=== PATIENT | male | born 1975 | race Caucasian/White ===

== ENCOUNTER → 2019-09-14 07:36 | Outpatient (BNVA) | payer MEDICARE, MEDICAID, SELFPAY | PROVIDERS: Family Provider Family Medicine; PCP Family Medicine; Visit Provider Nurse Practitioner | DX: F43.12 Post-traumatic stress disorder, chronic (principal); F41.9 Anxiety disorder, unspecified | CPT/HCPCS: 99214 ==

== ENCOUNTER → 2019-12-17 07:47 | Outpatient (BNVA) | payer MEDICARE, MEDICAID, SELFPAY | PROVIDERS: Family Provider Family Medicine; PCP Family Medicine; Visit Provider Nurse Practitioner | DX: F41.9 Anxiety disorder, unspecified (principal); F43.12 Post-traumatic stress disorder, chronic | CPT/HCPCS: 99214 ==

== ENCOUNTER → 2020-01-11 08:02 | Outpatient (BNVA) | payer MEDICARE, MEDICAID, SELFPAY | PROVIDERS: Family Provider Family Medicine; PCP Family Medicine; Visit Provider Nurse Practitioner | DX: F41.9 Anxiety disorder, unspecified (principal); F43.12 Post-traumatic stress disorder, chronic | CPT/HCPCS: 99213 ==

== ENCOUNTER → 2020-04-22 07:53 | Outpatient (BNVA) | payer MEDICARE, MEDICAID, SELFPAY | PROVIDERS: Family Provider Family Medicine; PCP Family Medicine; Visit Provider Nurse Practitioner | DX: F41.9 Anxiety disorder, unspecified (principal); F43.12 Post-traumatic stress disorder, chronic | CPT/HCPCS: 99214 ==

== ENCOUNTER → 2020-06-19 10:17 | Outpatient (BNVA) | payer MEDICARE, MEDICAID, SELFPAY | PROVIDERS: Family Provider Family Medicine; PCP Family Medicine; Visit Provider Nurse Practitioner | DX: F43.12 Post-traumatic stress disorder, chronic (principal); F41.9 Anxiety disorder, unspecified | CPT/HCPCS: 99213 ==

== ENCOUNTER 2020-08-05 07:47 | Outpatient (CLI) | payer MEDICARE, MEDICAID, SELFPAY ==
--- NOTE | 2020-08-05 08:04 | NMCV_ITS ---
NM viridiana perf SPECT r/s* [id number] Rodney Torres Age: 44 Gender: M : 1975 Exam Date: 08/05/2020 09:23 Ordering Phys: Corey Maher Technologist: CHAPITO Walsh Exam Location: [facility] Indications: Chest pain STRESS TEST Please see separate stress test report [facility] for full findings IMAGE PROTOCOL Rest/Stress 1 Lexiscan Day Radiopharmaceutical Dose (mCi) Administration Site Administered by Rest: Tc-99m 10.8 IV CHAPITO Walsh Sestamibi Stress:Tc-99m 33.0 IV CHAPITO Alba Sestamibi Rest: 05-Aug-2020 60 Discovery 630 Stress: 05-Aug-2020 45 Discovery 630 0.4mg Lexiscan. Images obtained in supine and prone position. SPECT RESULTS Technical Quality: Good Raw Data Analysis: Normal Image Corrections: Patient motion artifact - partial motion correction applied stress supine images Summed Stress Score: 0 Summed Rest Score: 7 Summed Difference Score: 0 PERFUSION FINDINGS Moderate sized prefusion defects are noted in the inferior and apical winslow at rest that resolve on stress images. Likely secondary to attenuation artifact FUNCTIONAL RESULTS (calculated via Gated SPECT) Stress Image LV EF (%): 50 Stress EDV (mL):131 TID: 1.03 Stress ESV (mL):66 FUNCTIONAL FINDINGS: There is normal left ventricular systolic function. IMPRESSIONS 1. Normal myocardial perfusion imaging. No evidence of ischemia 2. Attenuation artifacts seen in inferior and apical winslow 3. LV systolic function is normal Ariel Coreas MD (Electronically Signed) Final Date: 06 August 2020 19:28 S
--- NOTE | 2020-08-05 08:04 | ECG_ITS ---
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 Interpretive Statements NAME OF STUDY: LEXISCAN SESTAMIBI STRESS TEST INDICATION: [Chest Pain, ] Procedure: At the baseline, the blood pressure was 151/109mmHg, with a heart rate of 73 bpm. The electrocardiogram showed normal sinus rhythm, normal with normal ST and T waves. The Lexiscan was infused over a duration of 20 seconds. A total of 0.4 mg of Lexiscan was infused. The stress phase was continued for a total of 5 minutes. Heart rate at the end of stress phase was 79 bpm with a blood pressure 140/101 mmHg. The EKG at the peak infusion revealed sinus rhythm with no significant ST-T wave changes. Sestamibi was injected 20 seconds after Lexiscan infusion. Blood pressure at the end of the recovery phase was 145/102 mmHg with a heart rate of 84 bpm. Conclusion: 1. Normal EKG response to Lexiscan infusion. 2. No Lexiscan induced chest pain or cardiac arrhythmia. 3. Normal blood pressure and heart rate response. 4. Sestamibi/sestamibi perfusion scan pending; see separate report. Electronically Signed On 08-17-2020 17:50:28 CDT by Ariel Coreas M.D. [email or web address]
[2020-08-05 08:43] VITALS: BMI 43.2
[2020-08-05] MEDS: regadenoson 0.4 Mg/5 ml Syringe IVP (09:51)
[2020-08-05 09:59] VITALS: BP 145/102; PULSE 79
== END 2020-08-05 07:48 | disposition home or self-care (01) ==
PROVIDERS: PCP Family Medicine; Visit Provider Family Medicine
DX: R07.9 Chest pain, unspecified (principal)
CPT/HCPCS: 78452; 93017; A9500; J2785

== ENCOUNTER → 2020-10-01 07:52 | Outpatient (BNVA) | payer MEDICARE, MEDICAID, SELFPAY | PROVIDERS: PCP Family Medicine; Visit Provider Nurse Practitioner | DX: F41.9 Anxiety disorder, unspecified (principal); F43.12 Post-traumatic stress disorder, chronic | CPT/HCPCS: 99214 ==

== ENCOUNTER → 2020-12-24 07:19 | Outpatient (BNVA) | payer MEDICARE, MEDICAID, SELFPAY | PROVIDERS: PCP Family Medicine; Visit Provider Nurse Practitioner | DX: F41.9 Anxiety disorder, unspecified (principal); F43.12 Post-traumatic stress disorder, chronic | CPT/HCPCS: 99214 ==

== ENCOUNTER → 2021-02-24 07:29 | Outpatient (BNVA) | payer MEDICARE, MEDICAID, SELFPAY | PROVIDERS: PCP Family Medicine; Visit Provider Nurse Practitioner | DX: F41.9 Anxiety disorder, unspecified (principal); F43.12 Post-traumatic stress disorder, chronic | CPT/HCPCS: 99214 ==

== ENCOUNTER → 2021-07-03 07:46 | Outpatient (BNVA) | payer MEDICARE, MEDICAID, SELFPAY | PROVIDERS: PCP Family Medicine; Visit Provider Nurse Practitioner | DX: F43.12 Post-traumatic stress disorder, chronic (principal); F41.9 Anxiety disorder, unspecified | CPT/HCPCS: 99214 ==

== ENCOUNTER → 2021-08-07 07:27 | Outpatient (BNVA) | payer MEDICARE, MEDICAID, SELFPAY | PROVIDERS: PCP Family Medicine; Visit Provider Nurse Practitioner | DX: F43.12 Post-traumatic stress disorder, chronic (principal); F41.9 Anxiety disorder, unspecified | CPT/HCPCS: 99214 ==

== ENCOUNTER 2021-10-25 00:58 | Observation (INO) | payer MEDICARE, MEDICAID, SELFPAY ==
[2021-10-25 00:45] VITALS: BMI 40.7
[2021-10-25 00:58] VITALS: BP 130/89; PULSE 65; RESP 16; TEMP 36.3; O2SAT 96
--- NOTE | 2021-10-25 00:59 | USR_ITS ---
PROCEDURE INFORMATION: Exam: US Abdomen Complete Exam date and time: 10/25/2021 7:03 AM Age: 46 years old Clinical indication: Acute abdominal pain. Cholelithiasis. TECHNIQUE: Imaging protocol: Real-time ultrasound of the abdomen with image documentation. COMPARISON: CR Abdomen Series Acute [id number] 10/11/2016 7:56 AM FINDINGS: The hepatic parenchyma is echogenic. No biliary ductal dilatation. The common bile duct measures 0.4 cm. Cholelithiasis with apparent stone lodged in the gallbladder neck. There is mild prominence of the gallbladder wall. The visualized aorta is grossly normal in caliber. The right kidney measures 11.5 cm. No suspicious mass or hydronephrosis. A simple right renal cyst measures 2.8 x 2.8 x 2.9 cm. The left kidney measures 12.2 cm. No suspicious mass or hydronephrosis. The pancreas and IVC are obscured by overlying bowel gas. The spleen is mildly enlarged measuring 13.1 cm. US/US abdomen complete* [id number] IMPRESSION: 1. Cholelithiasis with apparent stone lodged in the gallbladder neck. There is mild prominence of the gallbladder wall. The sonographic Guerra sign is positive. These findings are concerning for acute cholecystitis. Consider HIDA scan if clinically equivocal. 2. Hepatic steatosis. 3. Mild splenomegaly.
--- NOTE | 2021-10-25 01:02 | P.HP_ITS ---
Providers/Chief Complaint Admitting Physician: Carmel Jones DO Primary Care Provider: Corey Maher Chief Complaint: GI Bleed History of Present Illness The patient is a 46-year-old male who was transferred from [facility] due to abdominal pain. He indicates that the abdominal pain started partially 7 days prior to hospitalization. He states that it is in a bandlike distribution in his upper abdomen. He denies radiation of the pain. He describes it as sharp, dull, and stabbing. As worst rated 9 out of 10 and currently he claims he rates 9 out of 10 although his outward appearance does not come close to be matching the subjective rating of pain. He states since the time of onset and the pain has been constant. He did not take any medication for the pain at home. He states that his last bowel movement was on October 24 to the . He admits to hematochezia. He denies melena, diarrhea, stat area. He states that he has been taking ibuprofen daily for many years. He admits to onset of rigors, nausea, vomiting. He denies fever. He presents for further evaluation Review of Systems General: Reports: 10 or more systems reviewed and unremarkable except in HPI and below Medications/Allergies Home Medications Medication Instructions Recorded Confirmed Last Taken Type ibuprofen 800 mg tablet 800 mg PO BID PRN tab 07/06/19 12/23/20 Unknown History valsartan 320 mg tablet (Diovan) 320 mg PO DAILY tab 07/06/19 12/23/20 Unknown History citalopram 40 mg tablet (Celexa) 40 mg PO DAILY #30 tab 10/22/21 Unknown Rx quetiapine 300 mg tablet (Seroquel) 300 mg PO .HS #30 tab 10/22/21 Unknown Rx quetiapine 50 mg tablet (Seroquel) 50 mg PO BID PRN #60 tab 10/22/21 Unknown Rx trazodone 50 mg tablet 50 mg PO .QHS PRN #30 tab 10/22/21 Unknown Rx Allergies Allergy/AdvReac Type Severity Reaction Status Date / Time No Known Allergies Allergy Verified 09/13/19 15:08 PFSH Acute PFSH: Medical History Anxiety disorder, unspecified Post-traumatic stress disorder, chronic Psychiatric care Vitals/I&O/Wt Weight last 48 hrs Weight 147.871 kg Physical Exam Narrative: General: -Alert -No acute distress -No dyspnea -No tachypnea Head: -Atraumatic -Normocephalic Eyes: -Pupils equally round and reactive to light and accommodation -Extraocular muscles intact Neurological: -Cranial nerves II-XII intact Neck: -No jugular venous distention -No thyromegaly -No cervical lymphadenopathy Heart: -Regular rate -Regular rhythm -No murmurs -No gallops -No rubs Lungs: -No wheeze -No rhonchi -No rales ? Abdomen: -Normal bowel sounds in all four quadrants -No rebound -No guarding -No tenderness Extremities: -2/4 pulse in all four extremities -No clubbing -No cyanosis -No edema -No calf tenderness present bilaterally -Negative Ángel?s sign bilaterally Musculoskeletal: -5/5 bilateral upper extremity strength -5/5 bilateral lower extremity strength -Sensorium of bilateral upper extremities are equal and intact -Sensorium of bilateral lower extremities are equal and intact ? Additional Details / Additional Findings / Exceptions / Miscellaneous: A&P Assessment and plan (1) Anxiety disorder, unspecified: Status: Acute Plan acute pancreatitis. CT at outside hospital demonstrated cholelithiasis but it did not of straight cholecystitis or choledocholithiasis. Nothing by mouth. Will monitor lipase level intermittently along with CMP. Right upper quadrant ultrasound pending. Fasting lipid panel pending. IV normal saline 100 ML's per hour PTSD Anxiety Depression Muscle spasm Macrocytic anemia. We will monitor hemoglobin level intermittent late. Check serum ferritin, iron panel, fecal occult blood, TSH, free T4, B12, folate level Diabetes. Will check fasting glucose every before meals and at bedtime and provide insulin sliding scale Hypertension Obesity. The patient will need to becomes regarding lifestyle modification Smoker. The patient will be need to be counseled regarding smoking cessation Hematochezia. Will monitor hemoglobin level intermittently. gastroenterology will need to consult on the morning of October 25, 2021.PT/INR pending. PTT pending. Nothing by mouth. Protonix 40 Mill grams IV twice a day +681 g by mouth every before meals and at bedtime. history of suicidal ideation Seasonal allergies Diverticulosis DVT Proflex is. 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
--- NOTE | 2021-10-25 01:36 | PC.NURSE ---
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 This RN walked into patient room to explain to him that i was waiting for pharmacy to verify his medication and that i couldnt give him anything yet until it was verified. Patient refusing IV fluids and IV protonix stating he isnt taking anything until he gets his fucking pain medications through his iv. I explained to patient that he was getting PO tramadol and patient stated that he wanted the iv shit because at the other hospital he was at they were giving him the IV stuff. I explained to patient that Dr Jones only ordered PO pain medication. Patient proceeded to get angry with this RN saying he should have stayed home and dealt with this since we are not doing anything for him. Patient also stated that he was going to get an attitude with every person that enters his room until he gets the fucking pain medications.
[2021-10-25] MEDS: pantoprazole 40 mg SDV IVP ×2 (01:49→14:07)
--- NOTE | 2021-10-25 01:54 | PC.NURSE ---
This RN went into patients room at this time once his pain medication was verified. A MUSA Shea in room at this time with this RN. Patient stated that He isnt taking tramadol that is fucking stupid. This RN asked what patient takes at home when he is having pain. Patient stated takes iburprofen and tramadol at home thats why he isnt taking the tramadol now. Dr. Jones notified and asked to come speck with patient.
[2021-10-25 03:17] VITALS: RESP 18
[2021-10-25] MEDS: morphine 4 mg/mL SDV 1 mL 2 MG IVP (03:17)
[2021-10-25] MEDS: sodium chloride 0.9% 1,000 ML 100 ML IV ×2 (03:19→14:05)
[2021-10-25 03:32] LABS: Basophils # 0.1 10^3/uL (0.0-0.1); Basophils % 0.7 %; Eosinophils # 0.2 10^3/uL (0.0-0.8); Eosinophils % 2.1 %; Hematocrit 41.3 % (42.0-52.0); Hemoglobin 13.4 g/dL (11.7-16.6); Lymphocytes # 2.8 10^3/uL (0.8-4.8); Lymphocytes % 36.5 %; Mean Corpuscular HGB Conc 32.4 g/dL (30.0-36.0); Mean Corpuscular Hemoglobin 33.2 pg (28.0-34.0); Mean Corpuscular Volume 102.2 fl (80-94); Mean Platelet Volume 11.9 fL (7.4-10.4); Monocytes # 0.6 10^3/uL (0.2-0.9); Neutrophils # 3.95 10^3/uL (1.8-7.7); Neutrophils % 51.5 %; Nucleated Red Blood Cells % 0 %; Platelet Count 240 10^3/cmm (130-400); Red Blood Count 4.04 10^6/uL (4.1-5.3); Red Cell Distribution Width 13.6 % (12.1-15.1); White Blood Count 7.7 10^3/uL (4.0-10.0)
[2021-10-25 03:47] LABS: INR 1.02 (0.8-1.2); Partial Thromboplastin Time 27.9 SECONDS (23.9-36.7)
[2021-10-25 03:54] LABS: Alanine Aminotransferase 399 U/L (0-41); Albumin Level 3.3 g/dL (3.5-5.2); Alkaline Phosphatase 346 IU/L (40-130); Anion Gap 14.6 (5-19); Aspartate Amino Transferase 212 U/L (0-40); Blood Urea Nitrogen 6 mg/dL (6-20); Calcium 8.1 mg/dL (8.5-10.5); Carbon Dioxide 23 mmol/L (22-29); Chloride 104 mmol/L (98-107); Cholesterol 214 mg/dL (0-200); Globulin 3.1 g/dL (1.3-4.6); Glomerular Filtration Rate 146.4 mL/min (90-130); Glucose 88 mg/dL (65-115); HDL Cholesterol 42 mg/dL (60-100); LDL Cholesterol Calculated 153 mg/dL (50-129); LDL HDL Ratio 3.64 RATIO (0.00-3.22); Osmolality Calculated 283 mOsm/kg (285-295); Potassium 3.6 mmol/L (3.5-5.1); Sodium 138 mmol/L (136-145); Total Bilirubin 2.9 mg/dL (0.15-1.2); Total Protein 6.4 g/dL (6.6-8.7); Triglycerides 94 mg/dL (0-150)
[2021-10-25 04:00] VITALS: BP 130/80; PULSE 78; RESP 18; TEMP 36.8; O2SAT 99
[2021-10-25 04:02] LABS: Thyroid Stimulating Hormone 2.12 uIU/mL (0.27-4.20)
[2021-10-25 04:03] LABS: Free T4 Free Thyroxine 1.25 ng/dL (0.82-1.77)
[2021-10-25 04:17] LABS: Ferritin 636 ng/mL (30-400); Iron 69 ug/dL (59-158); Percent Saturation 32.3 % (20-50); Total Iron Binding Capacity 213 mcg/dl; Unsaturated Iron Binding 144 ug/dL (112-347)
[2021-10-25 04:19] LABS: Folate Level 5.8 ng/mL (4.5-32.2)
[2021-10-25 05:31] LABS: Vitamin B12 > 2000 pg/mL (232-1245)
[2021-10-25 06:39] LABS: Lipase 755 U/L (13-60)
[2021-10-25] MEDS: ondansetron 2 mg/ML SDV 2 mL 4 MG IVP ×2 (08:25→17:13)
[2021-10-25 09:02] VITALS: BP 113/69; PULSE 52; RESP 18; TEMP 36.7; O2SAT 94
[2021-10-25] MEDS: HYDROmorphone 1 mg/mL INJ 1 mL 0.5 MG IVP ×2 (09:18→15:25)
--- NOTE | 2021-10-25 10:10 | P.PN_ITS ---
Subjective Subjective: Transferred yesterday from [facility] for abdominal pain with concern for biliary colic. Gallbladder ultrasound concerning for gallbladder outlet obstruction. Currently patient denies any nausea vomiting, headache. Complaining of abdominal pain. Asking for pain medications. Hemodyn amically stable. Afebrile. Vitals/I&O/Wt Last Vital Signs Temp 98.0 F 10/25/21 09:02 Pulse 52 L 10/25/21 09:02 Resp 18 10/25/21 09:02 BP 113/69 10/25/21 09:02 Pulse Ox 94 10/25/21 09:02 10/24/21 10/25/21 10/25/21 22:59 06:59 14:59 Intake Total 0 / 0 Output Total 0 / 0 Balance 0 / 0 Weight last 48 hrs Weight 147.871 kg Physical Exam Narrative: General: Acute distress because of abdominal pain, morbidly obese, AOx3 HEENT: PERRLA, pupils bilaterally equal and reactive Chest: Normal vesicular breath sounds, no added sounds, equal good air entry bilaterally CVS: S1-S2 regular, no murmurs, no tachycardia, no gallops, no rubs Abdomen: Soft, tenderness present in the right upper quadrant and epigastric region, no rebound or guarding, no organomegaly, bowel sounds present Neuro: No focal deficits, no facial deformity, AO x3, power 5/5 in all limbs Data : 10/25/21 02:55 10/25/21 02:55 A&P Assessment and plan (1) Pancreatitis: Status: Acute (2) Cholelithiasis and cholecystitis with obstruction: Status: Acute (3) Transaminitis: Status: Acute (4) Bilirubinemia: Status: Acute (5) Anxiety disorder, unspecified: Status: Acute Plan Abdominal pain: Secondary to cholelithiasis with cholecystitis stone dislodged gall bladder neck, pancreatitis: NPO. Gallbladder studies consistent with cholelithiasis with gallstone at bladder neck. Biliary duct nondilated. Patient has transaminitis with bilirubinemia. Lipase elevated. CT abdomen pelvis with contrast difficult etiology for transaminitis. MRCP stat It is likely patient will need an ERCP for which he will need to be transferred to a higher center. We will plan as per the results of MRCP. Protonix IV daily. Zofran as needed. Hydromorphone 0.5 IV every 6 hours as needed. Check hepatitis panel, HIV. Urine drug screen. Alcohol level. History of PTSD/anxiety/depression. History of suicidal ideation: Denies any active complaints. Possible history of hematochezia: Hemoglobin stable. Will continue to monitor hemoglobin daily. Look for melena. Continue with Protonix as above. Full code. SCDs for DVT prophylaxis. NPO. 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
--- NOTE | 2021-10-25 10:16 | CTR_ITS ---
PROCEDURE INFORMATION: Exam: CT Abdomen And Pelvis With Contrast Exam date and time: 10/25/2021 2:29 PM Age: 46 years old Clinical indication: Abdominal pain; Epigastric; Additional info: Cholecystitis TECHNIQUE: Imaging protocol: Computed tomography of the abdomen and pelvis with contrast. Radiation optimization: All CT scans at this facility use at least one of these dose optimization techniques: automated exposure control; mA and/or kV adjustment per patient size (includes targeted exams where dose is matched to clinical indication); or iterative reconstruction. Contrast material: VISI 320; Contrast volume: 50 ml; Contrast route: INTRAVENOUS (IV); COMPARISON: MR MRCP [id number] 10/25/2021 12:15 PM RADIATION DOSE METRICS: Total DLP (mGy-cm): 1963.69 FINDINGS: Liver: Hepatic steatosis. No mass. Gallbladder and bile ducts: 3 cm stone at the gallbladder body/neck without gallbladder distention or wall thickening. Small grouped calcifications at the distal common bile duct suggestive of stones/choledocholithiasis series 2 image 41. Common bile duct dilated up to 1.4 cm. Pancreas: Normal. No ductal dilation. Spleen: Normal. No splenomegaly. Adrenal glands: Normal. No mass. Kidneys and ureters: Scattered simple cysts measuring up to 3 cm in size. No hydronephrosis. Stomach and bowel: Unremarkable. No obstruction. No mucosal thickening. Appendix: No evidence of appendicitis. Intraperitoneal space: Unremarkable. No free air. No significant fluid collection. Vasculature: Unremarkable. No abdominal aortic aneurysm. Lymph nodes: Unremarkable. No enlarged lymph nodes. Urinary bladder: Unremarkable as visualized. Reproductive: Unremarkable as visualized. Bones/joints: No acute fracture. Soft tissues: Unremarkable. CT/CT abdomen pelvis w con* [id number] IMPRESSION: Cholelithiasis and choledocholithiasis with dilation of the common bile duct up to 1.4 cm.
--- NOTE | 2021-10-25 10:17 | MRR_ITS ---
PROCEDURE INFORMATION: Exam: MR Abdomen Without Contrast Exam date and time: 10/25/2021 12:15 PM Age: 46 years old Clinical indication: Condition or disease; Other: PT states pancreatitis and liver problems; Abdominal tenderness; Additional info: Cholelithiasis with cholecystitis, gall bladder obs TECHNIQUE: Imaging protocol: MR of the abdomen without contrast. COMPARISON: CT abdomen pelvis wo con [id number] 10/24/2021 8:16 PM FINDINGS: Liver: Diffuse hepatic steatosis. No mass. Gallbladder and bile ducts: 3 cm stone noted at the gallbladder body/neck. No gallbladder distention or wall thickening. The common bile duct is distended to 1 cm and there is susceptibility artifact at the distal common bile duct/ampullary region with similar signal characteristics to the stone in the gallbladder. This is suggestive of choledocholithiasis and is best seen on series 401, image 13 measuring 1.2 cm in length. Pancreas: Unremarkable. No ductal dilation. Spleen: Unremarkable. No splenomegaly. Adrenal glands: Unremarkable. No mass. Kidneys and ureters: Scattered simple cysts in both kidneys measuring up to 3 cm in size. No solid mass. No hydronephrosis. Stomach and bowel: Visualized stomach and intestines are unremarkable. Intraperitoneal space: No free fluid. Vasculature: No abdominal aortic aneurysm. Bones/joints: Unremarkable. Soft tissues: Unremarkable. MR/MR MRCP [id number] IMPRESSION: 1. Mild distention of the common bile duct up to 1 cm with suspected choledocholithiasis. There is also a 3 cm stone situated in the gallbladder body/neck as noted on prior imaging. 2. Diffuse hepatic steatosis. COMMENTS: Consistent with the [employer]'s Incidental Findings Committee white paper (J Am Cesar Radiol 2018): Any incidental renal lesion less than 1 cm or classified as too small to characterize, or any incidental cystic renal lesion characterized as simple-appearing, is likely benign. No follow-up imaging is recommended for these lesions per consensus recommendations based on imaging criteria.
[2021-10-25] MEDS: piperacillin-tazobactam 3.375 GM in sodium chloride 0.9% (plus) 50 ML IV ×2 (10:28→17:13)
[2021-10-25 11:18] LABS: Amphetamines Screen Urine Negative (Negative); Barbiturates Screen Urine Negative (Negative); Benzodiazepines Screen Urine Negative (Negative); Cocaine Screen Urine Negative (Negative); Opiate Screen Urine Positive (Negative); PCP Screen Urine Negative (Negative); THC Screen Urine Positive (Negative)
[2021-10-25 11:50] VITALS: BP 122/82; PULSE 51; RESP 18; TEMP 36.6; O2SAT 97
[2021-10-25] MEDS: haloperidol inj 5 mg/mL INJ 1 mL 2 MG IM (11:57)
[2021-10-25 12:05] LABS: Glucose Point of Care 81 mg/dL (70-110)
[2021-10-25] MEDS: iodixanol 320 mg/mL 100mL Btl IV (14:32)
--- NOTE | 2021-10-25 15:12 | P.TS_ITS ---
Transfer Summary Providers Date of Admission: 10/25/21 00:58 Date of Discharge/Transfer: 10/25/21 Attending Provider at Admission: Carmel Jones DO Attending Provider at Transfer: Jonathan Schwab MD Primary Care Provider: Corey Maher Transfer Plans: Anticipated date of transfer: 10/25/21 . Receiving Facility: [facility] . Receiving Provider: Dr. Vela . Diagnoses at Discharge Discharge Diagnosis (1) Pancreatitis: Status: Acute (2) Cholelithiasis and cholecystitis with obstruction: Status: Acute (3) Transaminitis: Status: Acute (4) Bilirubinemia: Status: Acute (5) Anxiety disorder, unspecified: Status: Acute Reason for Visit Reason for Visit GI Bleed Hospital Course Hospital Course Rodney Torres, 46-year-old male who was transferred from [facility] due to abdominal pain.? He indicates that the abdominal pain started partially 7 days prior to hospitalization.? He states that it is in a bandlike distribution in his upper abdomen.? He denies radiation of the pain.? He describes it as sharp, dull, and stabbing.? As worst rated 9 out of 10 and currently he claims he rates 9 out of 10 although his outward appearance does not come close to be matching the subjective rating of pain.? He states since the time of onset and the pain has been constant.? He did not take any medication for the pain at home.? He states that his last bowel movement was on October 24 to the .? He admits to hematochezia.? He denies melena, diarrhea, stat area.? He states that he has been taking ibuprofen daily for many years.? He admits to onset of rigors, nausea, vomiting.? He denies fever. On presentation the blood work showed patient to have transaminitis, hyperbilirubinemia. Upper quadrant ultrasound was done which was concerning for cholelithiasis, cholecystitis with a stone dislodged at the bladder neck. To confirm patient underwent MRCP which was consistent with choledocholithiasis with biliary duct dilated to 1.1 cm. Patient's care was discussed in detail with surgery. As per them patient will require possible need of ERCP and receptionist clerk. For the same transfer was sought to [facility]. Patient was finally accepted at [facility]. He has been transferred in hemodynamically stable condition for further evaluation and management. Physical Exam Narrative: General: Acute distress because of abdominal pain, morbidly obese, AOx3 HEENT: PERRLA, pupils bilaterally equal and reactive Chest: Normal vesicular breath sounds, no added sounds, equal good air entry bilaterally CVS: S1-S2 regular, no murmurs, no tachycardia, no gallops, no rubs Abdomen: Soft, tenderness present in the right upper quadrant and epigastric region, no rebound or guarding, no organomegaly, bowel sounds present Neuro: No focal deficits, no facial deformity, AO x3, power 5/5 in all limbs TS Data Studies Completed and Pending Pending at discharge Category Date Time Status Alcohol Level Routine Lab 10/25/21 10:16 Ordered Fecal Occult Blood [Immunochemical Fecal OCB] Routine Lab 10/25/21 00:59 Uncollected HIV 1&2 Antigen & Antibody Routine Lab 10/25/21 10:16 Ordered Hepatitis Panel Comp [Hepatitis Panel Comprehensive] Lab 10/25/21 10:16 Ordered Routine Labs from last 24 hours 10/25/21 10/25/21 10/25/21 11:46 10:35 02:55 WBC RBC Hgb Hct MCV MCH MCHC RDW Plt Count MPV Neut % (Auto) Lymph % (Auto) Cottle % (Auto) Eos % (Auto) Baso % (Auto) Neut # (Auto) Lymph # (Auto) Cottle # (Auto) Eos # (Auto) Baso # (Auto) Nucleated RBC % (auto) Nucleated RBCs # PT INR APTT Sodium 138 Potassium 3.6 Chloride 104 Carbon Dioxide 23 Anion Gap 14.6 BUN 6 Creatinine 0.6 L GFR Calculation 146.4 H Glucose 88 POC Glucose 81 Calculated Osmolality 283 L Calcium 8.1 L Iron TIBC % Saturation Unsat Iron Binding Ferritin Total Bilirubin 2.9 H AST 212 H ALT 399 H Alkaline Phosphatase 346 H Total Protein 6.4 L Albumin 3.3 L Globulin 3.1 Triglycerides 94 Cholesterol 214 H LDL Cholesterol, Calc 153 H HDL Cholesterol 42 L LDL/HDL Ratio 3.64 H Cholesterol/HDL Ratio 5.10 H Lipase 755 H Vitamin B12 Folate TSH Free T4 Urine Opiates Screen Positive H Ur Barbiturates Screen Negative Ur Phencyclidine Scrn Negative Ur Amphetamines Screen Negative U Benzodiazepines Scrn Negative Urine Cocaine Screen Negative U Marijuana (THC) Screen Positive H 10/25/21 10/25/21 10/25/21 02:55 02:55 02:55 WBC 7.7 RBC 4.04 L Hgb 13.4 Hct 41.3 L MCV 102.2 H MCH 33.2 MCHC 32.4 RDW 13.6 Plt Count 240 MPV 11.9 H Neut % (Auto) 51.5 Lymph % (Auto) 36.5 Cottle % (Auto) 8.0 Eos % (Auto) 2.1 Baso % (Auto) 0.7 Neut # (Auto) 3.95 Lymph # (Auto) 2.8 Cottle # (Auto) 0.6 Eos # (Auto) 0.2 Baso # (Auto) 0.1 Nucleated RBC % (auto) 0 Nucleated RBCs # 0.0 PT INR APTT Sodium Potassium Chloride Carbon Dioxide Anion Gap BUN Creatinine GFR Calculation Glucose POC Glucose Calculated Osmolality Calcium Iron 69 TIBC 213 % Saturation 32.3 Unsat Iron Binding 144 Ferritin 636 H Total Bilirubin AST ALT Alkaline Phosphatase Total Protein Albumin Globulin Triglycerides Cholesterol LDL Cholesterol, Calc HDL Cholesterol LDL/HDL Ratio Cholesterol/HDL Ratio Lipase Vitamin B12 > 2000 H Folate 5.8 TSH 2.12 Free T4 1.25 Urine Opiates Screen Ur Barbiturates Screen Ur Phencyclidine Scrn Ur Amphetamines Screen U Benzodiazepines Scrn Urine Cocaine Screen U Marijuana (THC) Screen 10/25/21 02:55 WBC RBC Hgb Hct MCV MCH MCHC RDW Plt Count MPV Neut % (Auto) Lymph % (Auto) Cottle % (Auto) Eos % (Auto) Baso % (Auto) Neut # (Auto) Lymph # (Auto) Cottle # (Auto) Eos # (Auto) Baso # (Auto) Nucleated RBC % (auto) Nucleated RBCs # PT 13.70 INR 1.02 APTT 27.9 Sodium Potassium Chloride Carbon Dioxide Anion Gap BUN Creatinine GFR Calculation Glucose POC Glucose Calculated Osmolality Calcium Iron TIBC % Saturation Unsat Iron Binding Ferritin Total Bilirubin AST ALT Alkaline Phosphatase Total Protein Albumin Globulin Triglycerides Cholesterol LDL Cholesterol, Calc HDL Cholesterol LDL/HDL Ratio Cholesterol/HDL Ratio Lipase Vitamin B12 Folate TSH Free T4 Urine Opiates Screen Ur Barbiturates Screen Ur Phencyclidine Scrn Ur Amphetamines Screen U Benzodiazepines Scrn Urine Cocaine Screen U Marijuana (THC) Screen Completed Studies During Hospitalization Category Date Time Status CT abdomen pelvis w con* [id number] Routine Cat Scan 10/25/21 10:16 Completed MR MRCP [id number] Stat MRI 10/25/21 10:17 Completed US abdomen complete* [id number] Routine Ultrasound 10/25/21 00:59 Completed Laboratory Last Values WBC 7.7 10^3/uL (4.0-10.0) 10/25/21 02:55 RBC 4.04 10^6/uL (4.1-5.3) L 10/25/21 02:55 Hgb 13.4 g/dL (11.7-16.6) 10/25/21 02:55 Hct 41.3 % (42.0-52.0) L 10/25/21 02:55 MCV 102.2 fl (80-94) H 10/25/21 02:55 MCH 33.2 pg (28.0-34.0) 10/25/21 02:55 MCHC 32.4 g/dL (30.0-36.0) 10/25/21 02:55 RDW 13.6 % (12.1-15.1) 10/25/21 02:55 Plt Count 240 10^3/cmm (130-400) 10/25/21 02:55 MPV 11.9 fL (7.4-10.4) H 10/25/21 02:55 Neut % (Auto) 51.5 % 10/25/21 02:55 Lymph % (Auto) 36.5 % 10/25/21 02:55 Cottle % (Auto) 8.0 % 10/25/21 02:55 Eos % (Auto) 2.1 % 10/25/21 02:55 Baso % (Auto) 0.7 % 10/25/21 02:55 Neut # (Auto) 3.95 10^3/uL (1.8-7.7) 10/25/21 02:55 Lymph # (Auto) 2.8 10^3/uL (0.8-4.8) 10/25/21 02:55 Cottle # (Auto) 0.6 10^3/uL (0.2-0.9) 10/25/21 02:55 Eos # (Auto) 0.2 10^3/uL (0.0-0.8) 10/25/21 02:55 Baso # (Auto) 0.1 10^3/uL (0.0-0.1) 10/25/21 02:55 Nucleated RBC % (auto) 0 % 10/25/21 02:55 Nucleated RBCs # 0.0 /100WBC 10/25/21 02:55 PT 13.70 SECONDS (12.1-14.9) 10/25/21 02:55 INR 1.02 (0.8-1.2) 10/25/21 02:55 APTT 27.9 SECONDS (23.9-36.7) 10/25/21 02:55 Sodium 138 mmol/L (136-145) 10/25/21 02:55 Potassium 3.6 mmol/L (3.5-5.1) 10/25/21 02:55 Chloride 104 mmol/L (98-107) 10/25/21 02:55 Carbon Dioxide 23 mmol/L (22-29) 10/25/21 02:55 Anion Gap 14.6 (5-19) 10/25/21 02:55 BUN 6 mg/dL (6-20) 10/25/21 02:55 Creatinine 0.6 mg/dL (0.7-1.2) L 10/25/21 02:55 GFR Calculation 146.4 mL/min (90-130) H 10/25/21 02:55 Glucose 88 mg/dL (65-115) 10/25/21 02:55 POC Glucose 81 mg/dL (70-110) 10/25/21 11:46 Calculated Osmolality 283 mOsm/kg (285-295) L 10/25/21 02:55 Calcium 8.1 mg/dL (8.5-10.5) L 10/25/21 02:55 Iron 69 ug/dL (59-158) 10/25/21 02:55 TIBC 213 mcg/dl 10/25/21 02:55 % Saturation 32.3 % (20-50) 10/25/21 02:55 Unsat Iron Binding 144 ug/dL (112-347) 10/25/21 02:55 Ferritin 636 ng/mL (30-400) H 10/25/21 02:55 Total Bilirubin 2.9 mg/dL (0.15-1.2) H 10/25/21 02:55 AST 212 U/L (0-40) H 10/25/21 02:55 ALT 399 U/L (0-41) H 10/25/21 02:55 Alkaline Phosphatase 346 IU/L (40-130) H 10/25/21 02:55 Total Protein 6.4 g/dL (6.6-8.7) L 10/25/21 02:55 Albumin 3.3 g/dL (3.5-5.2) L 10/25/21 02:55 Globulin 3.1 g/dL (1.3-4.6) 10/25/21 02:55 Triglycerides 94 mg/dL (0-150) 10/25/21 02:55 Cholesterol 214 mg/dL (0-200) H 10/25/21 02:55 LDL Cholesterol, Calc 153 mg/dL (50-129) H 10/25/21 02:55 HDL Cholesterol 42 mg/dL (60-100) L 10/25/21 02:55 LDL/HDL Ratio 3.64 RATIO (0.00-3.22) H 10/25/21 02:55 Cholesterol/HDL Ratio 5.10 mg/dL (1.0-5.00) H 10/25/21 02:55 Lipase 755 U/L (13-60) H 10/25/21 02:55 Vitamin B12 > 2000 pg/mL (232-1245) H 10/25/21 02:55 Folate 5.8 ng/mL (4.5-32.2) 10/25/21 02:55 TSH 2.12 uIU/mL (0.27-4.20) 10/25/21 02:55 Free T4 1.25 ng/dL (0.82-1.77) 10/25/21 02:55 Urine Opiates Screen Positive ng/mL (Negative) H 10/25/21 10:35 Ur Barbiturates Screen Negative ng/mL (Negative) 10/25/21 10:35 Ur Phencyclidine Scrn Negative ng/mL (Negative) 10/25/21 10:35 Ur Amphetamines Screen Negative ng/mL (Negative) 10/25/21 10:35 U Benzodiazepines Scrn Negative ng/mL (Negative) 10/25/21 10:35 Urine Cocaine Screen Negative ng/mL (Negative) 10/25/21 10:35 U Marijuana (THC) Screen Positive ng/mL (Negative) H 10/25/21 10:35 Radiology Impressions Abdomen Ultrasound 10/25/21 00:59 IMPRESSION: 1. Cholelithiasis with apparent stone lodged in the gallbladder neck. There is mild prominence of the gallbladder wall. The sonographic Guerra sign is positive. These findings are concerning for acute cholecystitis. Consider HIDA scan if clinically equivocal. 2. Hepatic steatosis. 3. Mild splenomegaly. Abdomen/Pelvis CT 10/25/21 10:16 IMPRESSION: Cholelithiasis and choledocholithiasis with dilation of the common bile duct up to 1.4 cm. Cholangiopancreatography MRI 10/25/21 10:17 IMPRESSION: 1. Mild distention of the common bile duct up to 1 cm with suspected choledocholithiasis. There is also a 3 cm stone situated in the gallbladder body/neck as noted on prior imaging. 2. Diffuse hepatic steatosis. COMMENTS: Consistent with the [employer]'s Incidental Findings Commi ttee white paper (J Am Cesar Radiol 2018): Any incidental renal lesion less than 1 cm or classified as too small to characterize, or any incidental cystic renal lesion characterized as simple-appearing, is likely benign. No follow-up imaging is recommended for these lesions per consensus recommendations based on imaging criteria. Recent Clincial Data Last Vital Signs Temp 97.8 F 10/25/21 11:50 Pulse 51 L 10/25/21 11:50 Resp 18 10/25/21 11:50 BP 122/82 10/25/21 11:50 Pulse Ox 97 10/25/21 11:50 Vital Signs Temp Pulse Resp BP Pulse Ox 10/25/21 11:50 97.8 F 51 L 18 122/82 97 10/25/21 09:02 98.0 F 52 L 18 113/69 94 10/25/21 04:00 98.2 F 78 18 130/80 99 10/25/21 03:17 18 Intake & Output/Weight 10/23/21 10/24/21 10/25/21 10/26/21 06:59 06:59 06:59 06:59 Intake Total 0 / 0 1000 / 1000 Output Total 0 / 0 100 / 100 Balance 0 / 0 900 / 900 Weight 147.871 kg Vitals Last Vital Signs Temp 97.8 F 10/25/21 11:50 Pulse 51 L 10/25/21 11:50 Resp 18 10/25/21 11:50 BP 122/82 10/25/21 11:50 Pulse Ox 97 10/25/21 11:50 TS Medications Medications Dextrose (Dextrose 50% Syringe 50 Ml) 25 ml IVP ONCE PRN; Protocol PRN Reason: hypoglycemia protocol Dextrose (Dextrose 50% Syringe 50 Ml) 50 ml IVP PRN PRN; Protocol PRN Reason: hypoglycemia protocol Glucagon (Glucagon 1 Mg/Ml Inj 1 Ml) 1 mg IM ONCE PRN; Protocol PRN Reason: Adult Acute Hypoglycemia Prot. Haloperidol Lactate (Haloperidol Inj 5 Mg/Ml Inj 1 Ml) 2 mg IM ONCE PRN PRN Reason: Prior to MRI Last Admin: 10/25/21 11:57 Dose: 2 mg Documented by: Hydromorphone HCl (Hydromorphone 1 Mg/Ml Inj 1 Ml) 0.5 mg IVP Q6H PRN PRN Reason: PS 6-10 Last Admin: 10/25/21 09:18 Dose: 0.5 mg Documented by: Sodium Chloride (Sodium Chloride 0.9%) 1,000 mls @ 100 mls/hr IV .Q10H JONELLE Last Admin: 10/25/21 14:05 Dose: 100 mls/hr Documented by: Dextrose (D5w) 500 mls @ 100 mls/hr IV ONCE PRN; Protocol PRN Reason: Adult Acute Hypoglycemia Prot Piperacillin Sod/Tazobactam (Sod 3.375 gm/ Sodium Chloride) 50 mls @ 12.5 mls/hr IV Q8H JONELLE; Protocol Last Admin: 10/25/21 10:28 Dose: 12.5 mls/hr Documented by: Insulin Human Lispro (Insulin Lispro 100 Unit/1 Ml) 0 unit SUBCUT Q6H JONELLE; Protocol Last Admin: 10/25/21 09:19 Dose: Not Given Documented by: Ondansetron HCl (Ondansetron 2 Mg/Ml Sdv 2 Ml) 4 mg IVP Q8H PRN PRN Reason: vomiting, or N/V if npo Last Admin: 10/25/21 08:25 Dose: 4 mg Documented by: Pantoprazole Sodium (Pantoprazole 40 Mg Sdv) 40 mg IVP Q12H JONELLE Last Admin: 10/25/21 14:07 Dose: 40 mg Documented by: Discontinued Medications Insulin Human Lispro (Insulin Lispro 100 Unit/1 Ml) 0 unit SUBCUT WM&BEDTIME JONELLE; Protocol Last Admin: 10/25/21 10:20 Dose: Not Given Documented by: Iodixanol (Iodixanol 320 Mg/Ml 100ml Btl) 0 ml IV ONCE ONE Stop: 10/25/21 14:33 Last Admin: 10/25/21 14:32 Dose: 50 ml Documented by: Morphine Sulfate (Morphine 4 Mg/Ml Sdv 1 Ml) 2 mg IVP ONCE ONE Stop: 10/25/21 03:13 Last Admin: 10/25/21 03:17 Dose: 2 mg Documented by: Sucralfate (Sucralfate 1 Gm Tablet) 1 gm PO AC&BEDTIME JONELLE Last Admin: 10/25/21 06:10 Dose: Not Given Documented by: Tramadol HCl (Tramadol 50 Mg Tablet) 50 mg PO ONCE ONE Stop: 10/25/21 01:26 Last Admin: 10/25/21 09:19 Dose: Not Given Documented by: Allergies No Known Allergies Allergy (Verified 09/13/19 15:08) Home Medications citalopram 40 mg tablet (Celexa) 40 mg PO DAILY #30 tab 10/22/21 [Rx Confirmed 10/25/21] quetiapine 50 mg tablet (Seroquel) 50 mg PO BID PRN #60 tab 10/22/21 [Rx Confirmed 10/25/21] baclofen 20 mg tablet 20 mg PO TID PRN 10/25/21 [History Confirmed 10/25/21] hydrochlorothiazide 12.5 mg capsule 12.5 mg PO DAILY 10/25/21 [History Confirmed 10/25/21] olmesartan 40 mg tablet 40 mg PO DAILY 10/25/21 [History Confirmed 10/25/21] quetiapine 300 mg tablet (Seroquel) 300 mg PO BEDTIME 10/25/21 [History Confirmed 10/25/21] trazodone 50 mg tablet 50 mg PO BEDTIME PRN 10/25/21 [History Confirmed 10/25/21] Discharge Plan Discharge Patient Disposition: Home Condition: Stable Prescriptions: No Action citalopram [Celexa] 40 mg tablet 40 mg PO DAILY Qty: 30 1RF quetiapine [Seroquel] 50 mg tablet 50 mg PO BID PRN (Reason: anxiety/halucintions/agitaton) Qty: 60 2RF baclofen 20 mg tablet 20 mg PO TID PRN (Reason: Pain) 0RF hydrochlorothiazide 12.5 mg capsule 12.5 mg PO DAILY 0RF olmesartan 40 mg tablet 40 mg PO DAILY 0RF Seroquel 300 mg tablet 300 mg PO BEDTIME 0RF trazodone 50 mg tablet 50 mg PO BEDTIME PRN (Reason: sleep) 0RF Discharge Orders: Transfer Out of Facility (Order); Ordered 10/25/21 Ordered By: Jonathan Schwab Discharge Diet: Advance as tolerated Discharge Activity: Resume usual activity and Increase activity as tolerated Patient Instructions: Opioid Safety Transfer Attestations Time Spent in Transfer Care: greater than 30 min Status at Transfer: Cognitive status at transfer: cognitively intact ; Behavioral status at transfer: cooperative ; Functional status at transfer: independent ambulation ; Overall status at transfer: patient is back to baseline Quality Metrics Clinical Quality Measures [ No reported AMI, CVA or VTE this stay] Coding Level of Care Code Acute Dining Room Hostess for [facility] Fwd Diagnoses Pancreatitis K85.90 Cholelithiasis and cholecystitis with obstruction K80.19 Transaminitis R74.01 Bilirubinemia E80.6 Anxiety disorder, unspecified F41.9
[2021-10-25 15:41] VITALS: BP 123/79; PULSE 51; RESP 18; TEMP 36.2; O2SAT 96
[2021-10-25 16:57] LABS: Glucose Point of Care 73 mg/dL (70-110)
[2021-10-25 18:35] LABS: Alcohol Level < 10 mg/dL (0-10)
[2021-10-25 18:40] LABS: Hepatitis A Antibody IgM Non-Reactive (Nonreactive); Hepatitis B Core AB, Total Reactive (Nonreactive); Hepatitis B Surface Antigen Non-Reactive (Nonreactive); Hepatitis C Virus Antibody Reactive (Nonreactive)
[2021-10-25 18:43] LABS: HIV 1 & 2 Antibody Non-Reactive (Non-Reactiv); HIV 1 & 2 Antigen Non-Reactive (Non-Reactiv)
--- NOTE | 2021-10-25 19:12 | PC.NURSE ---
Report called to Kala SEVILLA at [facility]
[2021-10-28 20:58] LABS: HEP C RNA Viral Load Quant <1.18 NOT DETECTED Log IU/mL (NOT DETECTED); HEP C RNA Viral Load Quant <15 NOT DETECTED IU/mL (NOT DETECTED)
== END 2021-10-25 19:30 | disposition other institution (70) ==
PROVIDERS: Admitting Provider Internal Medicine; PCP Family Medicine; Visit Provider Student in an Organized Health Care Education/Training Program
DX: K85.90 Acute pancreatitis without necrosis or infection, unspecified (principal); K80.19 Calculus of gallbladder with other cholecystitis with obstruction; R74.01 Elevation of levels of liver transaminase levels; E80.6 Other disorders of bilirubin metabolism; F41.9 Anxiety disorder, unspecified; E66.9 Obesity, unspecified; Z68.41 Body mass index [BMI] 40.0-44.9, adult; F17.210 Nicotine dependence, cigarettes, uncomplicated
CPT/HCPCS: 36415; 36416; 74177; 74181; 76700; 80053; 80061; 80306; 80307; 82607; 82728; 82746; 82962; 83540; 83550; 83690; 84439; 84443; 85025; 85610; 85730; 86705; 86706; 86709; 86803; 87340; 87522; 87806; C9113; G0378; G0379; J1170; J1630; J2270; J2405; J2543; J7030; Q9967

== ENCOUNTER 2024-01-11 21:04 | Observation (INO) | payer MEDICARE, MEDICAID, SELFPAY ==
[2024-01-11 21:11] VITALS: BP 145/92; PULSE 95; RESP 18; TEMP 36.8; O2SAT 94; BMI 38.7
--- NOTE | 2024-01-11 21:12 | ED.C_ITS ---
HPI - Psych 2 General: Chief Complaint: Psychiatric Symptoms Stated Complaint: 96hh Time Seen by Provider: 01/11/24 21:05 Source: patient and police Limitations: no limitations History of Present Illness: 48-year-old male was brought in here by a 96-hour hold by police. Police state that his got 96 in the he had a history of schizophrenia and been taking his meds and has been increasingly angry and paranoid. Patient here denies any SI or HI has been calm and cooperative here. Associated symptoms: Deny depression Review of Systems 2 Const: Denies: fever(s), chills, body aches or change in appetite Eyes: Denies: blurry vision or eye discomfort ENMT: Denies: throat pain or dental pain Card: Denies: chest pain Resp: Denies: dyspnea GI: Denies: abdominal pain, nausea, vomiting or diarrhea : Denies: dysuria Musc: Denies: neck pain or back pain Skin/Breast: Denies: rash Neuro: Denies: headache(s) Psych: Denies: depression Lenard/Lymph: Denies: easy bruising All/Imm: Denies: urticaria PFSH ED 2 PFSH: Medical History (Updated 08/26/23 @ 11:25 by Daisy Lucas) Psychiatric care Anxiety disorder, unspecified Post-traumatic stress disorder, chronic Physical Exam 2 Const: COMMON NORMALS: no acute distress, patient oriented x3 and healthy appearing HENMT: COMMON NORMALS: normocephalic and atraumatic HEAD & SCALP: n ormocephalic and atraumatic Neck/C-Spine: COMMON NORMALS: full ROM and supple Chest: COMMONS NORMALS: normal inspection of the chest Resp: COMMON NORMALS: normal respiratory effort Cardio: COMMON NORMALS: regular rate, regular rhythm and No murmurs present (Cardio) RATE: regular rate RHYTHM: regular rhythm Extremity: COMMON NORMALS: normal to inspection and full ROM Neuro: COMMON NORMALS: patient oriented x3, moves all extremities and no focal motor deficits Psych: COMMON NORMALS: mental status grossly normal, Normal thought process present and cooperative THOUGHT PROCESS: Normal thought process present Skin: COMMON NORMALS: no rashes or lesions noted and no wounds GENERAL SKIN EXAM: no rashes or lesions noted Course 2 Vital Signs: Vital signs: Vital Signs Temperature 98.3 F 01/11/24 21:11 Pulse Rate 95 01/11/24 21:11 Respiratory Rate 18 01/11/24 21:11 Blood Pressure 145/92 01/11/24 21:11 Pulse Oximetry 94 01/11/24 21:11 Oxygen Delivery Me thod Room Air 01/11/24 21:11 MDM - Psych Medical Decision Making Patient presents here with paranoia he is placed under 96-hour hold was brought in by police he is medically cleared I spoke to psychiatrist will admit at this time under his 89-year-old Medical Records I reviewed the patient's medical records. Lab Data I reviewed the patient's lab results. 01/11/24 21:17 01/11/24 21:17 Laboratory Results WBC 11.77 10^3/uL (3.29-11.43) H 01/11/24 21:17 RBC 5.38 10^6/uL (3.85-5.65) 01/11/24 21:17 Hgb 17.30 g/dL (11.27-16.99) H 01/11/24 21:17 Hct 50.9 % (37-53) 01/11/24 21:17 MCV 94.6 fl (82-101) 01/11/24 21:17 MCH 32.2 pg (27-33) 01/11/24 21:17 MCHC 34.0 g/dL (30-55) 01/11/24 21:17 RDW 13.2 % (12.1-15.1) 01/11/24 21:17 Plt Count 209 10^3/cmm (157-399) 01/11/24 21:17 MPV 10.9 fL (7.4-10.4) H 01/11/24 21:17 Neut % (Auto) 64.3 % 01/11/24 21:17 Lymph % (Auto) 22.8 % 01/11/24 21:17 [place] % (Auto) 7.7 % 01/11/24 21:17 Eos % (Auto) 4.0 % 01/11/24 21:17 Baso % (Auto) 0.8 % 01/11/24 21:17 Neut # (Auto) 7.57 10^3/uL (1.8-7.7) 01/11/24 21:17 Lymph # (Auto) 2.7 10^3/uL (0.8-4.8) 01/11/24 21:17 [place] # (Auto) 0.9 10^3/uL (0.2-0.9) 01/11/24 21:17 Eos # (Auto) 0.5 10^3/uL (0.0-0.8) 01/11/24 21:17 Baso # (Auto) 0.1 10^3/uL (0.0-0.1) 01/11/24 21:17 Nucleated RBC % (auto) 0 % 01/11/24 21:17 Nucleated RBCs # 0.0 /100WBC 01/11/24 21:17 No radiology studies performed this visit Discharge Plan Discharge Admit Provider: Kristian Bustamante Condition: Stable Coding Level of Care Code ED 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
--- NOTE | 2024-01-11 21:17 | PC.NURSE ---
96 Hour Hold Patient noted to be calm and pleasant while sitting in garcia bed. When asked if he had been held for a 96 hour hold before, patient replied yes. When beginning to read patient his 96 hour hold rights, patient stated That's good, I know about it. Copy of rights left with patient. Care nurse with patient.
[2024-01-11 21:26] LABS: Basophils # 0.1 10^3/uL (0.0-0.1); Basophils % 0.8 %; Eosinophils # 0.5 10^3/uL (0.0-0.8); Hematocrit 50.9 % (37-53); Lymphocytes # 2.7 10^3/uL (0.8-4.8); Lymphocytes % 22.8 %; Mean Corpuscular Hemoglobin 32.2 pg (27-33); Mean Corpuscular Volume 94.6 fl (82-101); Mean Platelet Volume 10.9 fL (7.4-10.4); Monocytes # 0.9 10^3/uL (0.2-0.9); Monocytes % 7.7 %; Neutrophils # 7.57 10^3/uL (1.8-7.7); Neutrophils % 64.3 %; Nucleated Red Blood Cells % 0 %; Platelet Count 209 10^3/cmm (157-399); Red Blood Count 5.38 10^6/uL (3.85-5.65); Red Cell Distribution Width 13.2 % (12.1-15.1); White Blood Count 11.77 10^3/uL (3.29-11.43)
[2024-01-11 21:47] LABS: Alanine Aminotransferase 30 U/L (0-41); Albumin Level 4.6 g/dL (3.5-5.2); Alkaline Phosphatase 74 U/L (40-130); Anion Gap 16.9 (5-19); Aspartate Amino Transferase 20 U/L (0-40); Blood Urea Nitrogen 13 mg/dL (6-20); Calcium 9.8 mg/dL (8.5-10.5); Carbon Dioxide 24 mmol/L (22-29); Chloride 102 mmol/L (98-107); Creatinine Clr Calc Pharmacy 155.1371; Globulin 3.3 g/dL (1.3-4.6); Glomerular Filtration Rate 90.8 mL/min (90-130); Glucose 105 mg/dL (65-115); Osmolality Calculated 288 mOsm/kg (285-295); Potassium 3.9 mmol/L (3.5-5.1); Sodium 139 mmol/L (136-145); Total Bilirubin 0.4 mg/dL (0.15-1.2); Total Protein 7.9 g/dL (6.6-8.7)
[2024-01-11 21:48] LABS: Acetaminophen < 5.0 ug/mL (10-30); Alcohol Level < 10 mg/dL (0-10); Salicylate < 0.3 mg/dL (3-10)
[2024-01-11 22:25] VITALS: BP 130/87; PULSE 76; RESP 20; TEMP 36.8; O2SAT 95
[2024-01-11 22:29] VITALS: BP 140/94; PULSE 95; RESP 18; O2SAT 94
[2024-01-11 23:36] LABS: Amphetamines Screen Urine Negative (Negative); Barbiturates Screen Urine Negative (Negative); Benzodiazepines Screen Urine Negative (Negative); Cocaine Screen Urine Negative (Negative); Opiate Screen Urine Negative (Negative); PCP Screen Urine Negative (Negative); THC Screen Urine Positive (Negative)
[2024-01-12 06:00] VITALS: BP 164/99; PULSE 58; RESP 16; TEMP 37; O2SAT 96
[2024-01-12] MEDS: acetaminophen 325 mg Tablet 650 MG PO (07:37)
[2024-01-12] MEDS: baclofen 10 mg Tablet 20 MG PO (07:37)
[2024-01-12] MEDS: fluticasone nasal spray 16gm Btl 2 SPRAY NASAL (08:21)
[2024-01-12 08:22] VITALS: BP 164/99
[2024-01-12] MEDS: cetirizine 10 mg Tablet PO (08:22)
[2024-01-12] MEDS: hydroCHLOROthiazide 25 mg Tablet 12.5 MG PO (08:22)
[2024-01-12] MEDS: citalopram 20 mg Tablet 40 MG PO (08:22)
[2024-01-12] MEDS: losartan 50 mg Tablet 100 MG PO (08:22)
[2024-01-12] MEDS: ondansetron 4 MG Tablet PO (08:48)
[2024-01-12] MEDS: hyDROXYzine 25 mg Capsule 50 MG PO (09:43)
--- NOTE | 2024-01-12 12:21 | P.NPUHP_ITS ---
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 several days 4. Feeling tired or having little energy: several days 5. Poor appetite or overeating: nearly every day 6. Feeling bad about yourself - or that you are a failure or have let yourself or your family down: several days 7. Trouble concentrating on things, such as reading the newspaper or watching television: more than half the days 8. Moving or speaking so slowly that other people could have noticed. Or the opposite - being so fidgety or restless that you have been moving around a lot more than usual: nearly every day 9. Thoughts that you would be better off or of hurting yourself in some way: not at all PHQ-9 score (0-4 None; 5-9 Mild; 10-14 Moderate; 15-19 Moderately severe; 20-27 Severe) 10. If you checked off any problems, how difficult have those problems made it for you to do your work, take care of things at home, or get along with other people?: very difficult Source: Developed by Drs. Jose Chamberlain, Masoud Zurita and colleagues, with an educational charis from [employer]. Meds NPU Home Medications Medication Instructions Recorded Confirmed Last Taken Type baclofen 20 mg tablet 20 mg PO TID PRN Pain 10/25/21 01/12/24 Unknown History hydrochlorothiazide 12.5 mg capsule 12.5 mg PO DAILY 10/25/21 01/12/24 Unknown History olmesartan 40 mg tablet 40 mg PO DAILY HTN 10/25/21 01/12/24 Unknown History quetiapine 50 mg tablet (Seroquel) 50 mg PO BID PRN 11/18/21 01/12/24 Unknown Rx anxiety/halucintions/agitaton #60 tabs citalopram 40 mg tablet (Celexa) 40 mg PO DAILY #30 tabs 12/25/21 01/12/24 Unknown Rx quetiapine 300 mg tablet (Seroquel) 300 mg PO BEDTIME #30 tabs 12/25/21 01/12/24 Unknown Rx trazodone 50 mg tablet 50 mg PO BEDTIME PRN sleep #30 tabs 12/25/21 01/12/24 Unknown Rx buspirone 15 mg tablet 15 mg PO TID 01/12/24 01/12/24 Unknown History Allergies Allergy/AdvReac Type Severity Reaction Status Date / Time No Known Allergies Allergy Verified 01/11/24 21:13 PFSH NPU 2 PFSH: Medical History (Updated 01/12/24 @ 13:05 by Keegan Navarrete MD) Psychiatric care Anxiety disorder, unspecified Post-traumatic stress disorder, chronic Mental Status Exam 2 MSE Comments: This patient is a casually dressed white male who appeared his stated age. His gait appeared within normal limits. His hygiene was fair. There was no evidence of any abnormal involuntary motor movements, tics, or tremors appreciated. His speech was normal in regards to rate rhythm and prosody. His mood was described as fine. His affect was slightly restricted in range. His thought process was linear logical and goal-directed. He denied any homicidal or suicidal ideation. He did not appear to be responding to internal stimuli. There was no clear evidence of delusional thinking. His attention span appeared fair. He was alert and oriented person place and time. His recent and remote memory appeared grossly intact. His insight was partial. His judgment appeared fair. His impulse control appeared fair at this time. Vitals/I&O/Wt Last Vital Signs Temp 98.6 F 01/12/24 06:00 Pulse 58 L 01/12/24 06:00 Resp 16 01/12/24 06:00 BP 164/99 01/12/24 08:22 Pulse Ox 96 01/12/24 06:00 O2 Del Method Room Air, CPAP 01/11/24 22:06 Weight last 48 hrs Weight 140.614 kg Data NPU 01/11/24 21:17 01/11/24 21:17 A&P Assessment and plan (1) Depression, unspecified: (2) Post-traumatic stress disorder, chronic: (3) JOANNA (generalized anxiety disorder): Plan 48-year-old male history of depression and PTSD symptoms brought in involuntarily for allegedly aggression and threatening behavior from events that appear to have taken place 1 week ago. Patient was evaluated overnight and does not appear to meet need for continued stay here and is not requesting any changes with his medications at this time. -Patient restarted on medications, but 96 hour hold will be rescinded and patient to be discharged. Patient reports continuing to take his medications managed by primary care physician. Involuntary Hold Information 2 96 Hour Hold: 96 Hour Involuntary Admission: Yes 96 Hour Hold Ending Date: 01/12/24 96 Hour Hold Ending Time: 22:25 Attestations NPU 2 Medical Necessity Statement*: Inpatient hospitalization is not medically necessary. We will monitor/initiate medications and make changes as indicated.? The patient has been hospitalized overnight and will be discharged today. Coding Level of Care Code Acute Code for [facility] Fwd Diagnoses Depression, unspecified F32.A Post-traumatic stress disorder, chronic F43.12 JOANNA (generalized anxiety disorder) F41.1
--- NOTE | 2024-01-12 13:07 | P.NPUDS_ITS ---
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 Feeling down, depressed, or hopeless: several days 3. Trouble falling or staying asleep, or sleeping too much: several days 4. Feeling tired or having little energy : several days 5. Poor appetite or overeating: nearly e very day 6. Feeling bad about yourself - or that you are a failure or have let yourself or your family down: several days 7. Trouble concentrating on things, such as reading the newspaper or watching television: more than half the days 8. Moving or speaking so slowly that ot er people could have noticed. Or the opposite - being so fidgety or restless that you have been moving around a lot more than usual: nearly every day 9. Thoughts that you would be better off or of hurting yourself in some way: not at all PHQ-9 score (0-4 None; 5-9 Mild; 10-14 Moderate; 15-19 Moderately severe; 20-27 Severe) 10. If you checked off any problems, how difficult have those problems made it for you to do your work, take care of things at home, or get along with other people?: very difficult Source: Developed by Drs. Jose Chamberlain, Masoud Zurita and colleagues, with an educational charis from [employer] Hospital Course Hospital Course At the time of discharge, he denies psychosis or lethality.? Mood and anxiety were well managed.? Patient was evaluated and deemed to be absent credible lethality, and had achieved the maximum benefit from an inpatient hospitalization given his lack of participation, so he was discharged. He had reported that he would live with his sister at this time given charges that were filed on him preventing him from returning home to his . Involuntary Hold Information 96 Hour Hold: 96 Hour Involuntary Admission: Yes 96 Hour Hold Ending Date: 01/12/24 96 Hour Hold Ending Time: 22:25 Mental Status Exam MSE Comments: This patient is a casually dressed white male who appeared his stated age. His gait appeared within normal limits. His hygiene was fair. There was no evidence of any abnormal involuntary motor movements, tics, or tremors appreciated. His speech was normal in regards to rate rhythm and prosody. His mood was described as fine. His affect was slightly restricted in range. His thought process was linear logical and goal-directed. He denied any homicidal or suicidal ideation. He did not appear to be responding to internal stimuli. There was no clear evidence of delusional thinking. His attention span appeared fair. He was alert and oriented person place and time. His recent and remote memory appeared grossly intact. His insight was partial. His judgment appeared fair. His impulse control appeared fair at this time. Discharge Data Studies Completed and Pending: Laboratory Results WBC 11.77 10^3/uL (3. 29-11.43) H 01/11/24 21:17 RBC 5.38 10^6/uL (3.8 5-5.65) 01/11/24 21:17 Hgb 17.30 g/dL (11.27 -16.99) H 01/11/24 21:17 Hct 50.9 % (37-53) 01/11/24 21:17 MCV 94.6 fl (82-101) 01/11/24 21:17 MCH 32.2 pg (27-33) 01/11/24 21:17 MCHC 34.0 g/dL (30-55) 01/11/24 21:17 RDW 13.2 % (12.1-15.1 ) 01/11/24 21:17 Plt Count 209 10^3/cmm (157 -399) 01/11/24 21:17 MPV 10.9 fL (7.4-10.4 ) H 01/11/24 21:17 Neut % (Auto) 64.3 % 01/11/24 21:17 Lymph % (Auto) 22.8 % 01/11/24 21:17 [place] % (Auto) 7.7 % 01/11/24 21:17 Eos % (Auto) 4.0 % 01/11/24 21:17 Baso % (Auto) 0.8 % 01/11/24 21:17 Neut # (Auto) 7.57 10^3/uL (1.8 -7.7) 01/11/24 21:17 Lymph # (Auto) 2.7 10^3/uL (0.8- 4.8) 01/11/24 21:17 [place] # (Auto) 0.9 10^3/uL (0.2- 0.9) 01/11/24 21:17 Eos # (Auto) 0.5 10^3/uL (0.0- 0.8) 01/11/24 21:17 Baso # (Auto) 0.1 10^3/uL (0.0- 0.1) 01/11/24 21:17 Nucleated RBC % (a uto) 0 % 01/11/24 21:17 Nucleated RBCs # 0.0 /100WBC 01/11/24 21:17 Sodium 139 mmol/L (136-1 45) 01/11/24 21:17 Potassium 3.9 mmol/L (3.5-5 .1) 01/11/24 21:17 Chloride 102 mmol/L (98-10 7) 01/11/24 21:17 Carbon Dioxide 24 mmol/L (22-29) 01/11/24 21:17 Anion Gap 16.9 (5-19) 01/11/24 21:17 BUN 13 mg/dL (6-20) 01/11/24 21:17 Creatinine 0.9 mg/dL (0.7-1. 2) 01/11/24 21:17 GFR Calculation 90.8 mL/min (90-1 30) 01/11/24 21:17 Glucose 105 mg/dL (65-115 ) 01/11/24 21:17 Calculated Osmolal ity 288 mOsm/kg (285- 295) 01/11/24 21:17 Calcium 9.8 mg/dL (8.5-10 .5) 01/11/24 21:17 Total Bilirubin 0.4 mg/dL (0.15-1 .2) 01/11/24 21:17 AST 20 U/L (0-40) 01/11/24 21:17 ALT 30 U/L (0-41) 01/11/24 21:17 Alkaline Phosphata se 74 U/L (40-130) 01/11/24 21:17 Total Protein 7.9 g/dL (6.6-8.7 ) 01/11/24 21:17 Albumin 4.6 g/dL (3.5-5.2 ) 01/11/24 21:17 Globulin 3.3 g/dL (1.3-4.6 ) 01/11/24 21:17 Salicylates < 0.3 mg/dL (3-10 ) L 01/11/24 21:17 Urine Opiates Scre en Negative ng/mL (N egative) 01/11/24 22:53 Acetaminophen < 5.0 ug/mL (10-3 0) L 01/11/24 21:17 Ur Barbiturates Sc reen Negative ng/mL (N egative) 01/11/24 22:53 Ur Phencyclidine S crn Negative ng/mL (N egative) 01/11/24 22:53 Ur Amphetamines Sc reen Negative ng/mL (N egative) 01/11/24 22:53 U Benzodiazepines Scrn Negative ng/mL (N egative) 01/11/24 22:53 Urine Cocaine Scre en Negative ng/mL (N egative) 01/11/24 22:53 U Marijuana (THC) Screen Positive ng/mL (N egative) H 01/11/24 22:53 Ethyl Alcohol < 10 mg/dL (0-10) 01/11/24 21:17 Vitals: Last Vital Signs Temp 98.6 F 01/12/24 06:00 Pulse 58 L 01/12/24 06:00 Resp 16 01/12/24 06:00 BP 164/99 01/12/24 08:22 Pulse Ox 96 01/12/24 06:00 O2 Del Method Room Air, CPAP 01/11/24 22:06 Discharge Plan Discharge Patient Disposition: Home Condition: Stable Prescriptions: Continued citalopram [Celexa] 40 mg tablet 40 mg PO DAILY Qty: 30 1RF trazodone 50 mg tablet 50 mg PO BEDTIME PRN (Reason: sleep) Qty: 30 1RF baclofen 20 mg tablet 20 mg PO TID PRN (Reason: Pain) hydrochlorothiazide 12.5 mg capsule 12.5 mg PO DAILY Discontinued quetiapine [Seroquel] 50 mg tablet 50 mg PO BID PRN (Reason: anxiety/halucintions/agitaton) Qty: 60 2RF quetiapine [Seroquel] 300 mg tablet 300 mg PO BEDTIME Qty: 30 1RF No Action olmesartan 40 mg tablet 40 mg PO DAILY buspirone 15 mg tablet 15 mg PO TID Discharge Orders: Discharge Order (Routine); Ordered 01/12/24 Ordered By: Keegan Navarrete Referrals: Corey Maher [Primary Care Provider] - Discharge Diet: Usual diet Discharge Activity: Resume usual activity Patient Instructions: Opioid Safety Discharge Attestations NPU Time Spent in Discharge Care*: less than 30 min Specific Discharge Activities: Specific discharge activities: educating patient, discussing with showcase trimmer/social workers/dc planners and documenting/other paperwork Status at Discharge: Cognitive status at discharge: cognitively intact , Behavioral status at discharge: cooperative , Coding Level of Care Code Acute Code for [facility] Fwd Diagnoses Depression, unspecified F32.A Post-traumatic stress disorder, chronic F43.12 JOANNA (generalized anxiety disorder) F41.1
[2024-01-12 13:13] VITALS: BP 164/99
[2024-01-12 13:43] VITALS: BP 154/98; PULSE 80; RESP 16; TEMP 36.6; O2SAT 94
== END 2024-01-12 13:45 | disposition home or self-care (01) ==
LOC: ER 21:14 → NP 21:31
PROVIDERS: Admitting Provider Psychiatry & Neurology Psychiatry; Emergency Provider Emergency Medicine; PCP Family Medicine; Visit Provider Psychiatry & Neurology Psychiatry
DX: F32.A Depression, unspecified (principal); F43.10 Post-traumatic stress disorder, unspecified; F41.1 Generalized anxiety disorder
CPT/HCPCS: 36415; 80053; 80306; 80307; 85025; 97165; 99285; G0378; Q0162